=== PATIENT | female | born 1985 | race American Indian/Alaskan Native ===

== ENCOUNTER 2017-10-13 14:08 | Emergency (ER) | payer MEDICAID ==
--- NOTE | 2017-10-13 14:28 | EDM.PDOC ---
ED HPI GENERAL MEDICAL PROBLEM - General Chief Complaint: Behavioral/Psych Stated Complaint: TEST FOR METH P PATIENT Time Seen by Provider: 10/13/17 14:15 Source of Information: Reports: Patient, Family (), RN, RN Notes Reviewed History Limitations: Reports: Altered Mental Status - History of Present Illness INITIAL COMMENTS - FREE TEXT/NARRATIVE: Pt presented to ER by her with report that pt returned from a vacation to [place] with her mother and there 2yr old son yesterday, and today he was called at work by his [id number] because the pt was "not acting right". The spoke to the pt by phone daily while she was away and did not notice any unusual behaviors or speech. He states his wound never "do drugs" but he wonders if someone has poisoned her with meth or something. The pt is clinging to the , and displaying very odd movements and behaviors, yet she answers questions appropriately and is oriented to person, place, and date. She admits that something is happening to her that she doesn't understand, and she is afraid. Pt states she doesn't understand what is happening to her, but she knows she is at the ER to get help. Pt randomly with growl and scream, and lunge at people. She has been pointing and waving her hands and arms around in what the describes as "dance like" movements. Pt denies headache, visual changes, neck pain or stiffness, fever, chills, new or recent medication changes, supplements, or over the counter medications, head injury, joint aches or swelling, alcohol or drug use. Pt was seen by Dr. 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 She had been treated with Dexedrine Spansule 15mg SR. Pt took the med. in September and did well. She got a new prescription that was a different brand , and became more anxious and agitated on the medication, so 2 weeks ago she discontinued the Dexedrine and has felt well until today. Onset: Unknown/Unsure (last night or today) Duration: Constant Location: Reports: Generalized Severity: Severe Improves with: Reports: None Worsens with: Reports: None Associated Symptoms: Reports: No Other Symptoms - Related Data Allergies Allergy/AdvReac Type Severity Reaction Status Date / Time No Known Allergies Allergy Verified 10/13/17 14:37 Home Meds: Home Meds . [No Known Home Meds] 10/13/17 [History] Past Medical History Neurological History: Reports: Other (See Below) (Primary narcolepsy without cataplexy) Social & Family History - Family History Family Medical History: Noncontributory - Alcohol Use Alcohol Use History: No - Recreational Drug Use Recreational Drug Use: No Drug Use in Last 12 Months: No - Living Situation & Occupation Living situation: Reports: , with Spouse, with Family ED ROS GENERAL - Review of Systems Review Of Systems: ROS reveals no pertinent complaints other than HPI. - Physical Exam Exam: See Below Exam Limited By: Altered Mental Status General Appearance: Alert, WD/WN, No Apparent Distress, Other (non-toxic appearing) Eye Exam: Bilateral Eye: EOMI, Normal Inspection, PERRL Ears: Normal External Exam, Normal Canal, Hearing Grossly Normal, Normal TMs Nose: Normal Inspection, Normal Mucosa, No Blood Throat/Mouth: Normal Inspection, Normal Lips, Normal Teeth, Normal Gums, Normal Oropharynx, Normal Voice, No Airway Compromise Head Exam: Atraumatic, Normocephalic Neck: Normal Inspection, Supple, Non-Tender, Full Range of Motion Respiratory/Chest: No Respiratory Distress, Lungs Clear, Normal Breath Sounds, No Accessory Muscle Use, Chest Non-Tender Cardiovascular: Normal Peripheral Pulses, Regular Rate, Rhythm, No Edema, No Gallop, No JVD, No Murmur, No Rub GI/Abdominal: Normal Bowel Sounds, Soft, Non-Tender, No Organomegaly, No Distention, No Abnormal Bruit, No Mass (Female) Exam: Deferred Rectal (Female) Exam: Deferred Neuro Exam (Abbreviated): Alert, Oriented, No Motor/Sensory Deficits, Confused, Other (recurrent episodes of crying, growling, clings to , and assumes a position, she has choreographic like arm movements, and finger gesturing , and confusion as to what is happening around her, altered perception of reality) Back Exam: Normal Inspection, Full Range of Motion, NT Extremities: Normal Inspection, Normal Range of Motion, Non-Tender, No Pedal Edema, Normal Capillary Refill Skin Exam: Warm, Dry, Intact, Normal Color, No Rash Course - Vital Signs Last Recorded V/S: Last Vital Signs Temp 37.3 C 10/13/17 14:15 Pulse 106 H 10/13/17 14:15 Resp 18 10/13/17 14:15 BP 126/79 10/13/17 14:15 Pulse Ox 98 10/13/17 14:15 - Orders/Labs/Meds Labs: Laboratory Tests 10/13/17 10/13/17 10/13/17 Range/Units 14:38 14:38 14:38 WBC 5.6 (5.0-10.0) 10^3/uL RBC 4.38 (4.2-5.4) 10^6/uL Hgb 13.4 (12.0-16.0) g/dL Hct 40.2 (37.0-47.0) % MCV 91.8 (80-100) fL MCH 30.6 (27.0-34.0) pg MCHC 33.3 (33.0-35.0) g/dL Plt Count 202 (150-450) 10^3/uL Neut % (Auto) 62.9 (42.2-75.2) % Lymph % (Auto) 23.8 (20.5-50.1) % [place] % (Auto) 11.0 H (2-8) % Eos % (Auto) 2.1 (1.0-3.0) % Baso % (Auto) 0.2 (0.0-1.0) % Sodium 139 (135-145) mmol/L Potassium 3.2 L (3.6-5.0) mmol/L Chloride 103 (101-111) mmol/L Carbon Dioxide 27.0 (21.0-31.0) mmol/L Anion Gap 12.2 BUN 7 (7-18) mg/dL Creatinine 0.7 (0.6-1.3) mg/dL Est Cr Clr Drug Dosing 119.46 mL/min Estimated GFR (MDRD) > 60 BUN/Creatinine Ratio 10.00 Glucose 105 (74-105) mg/dL Calcium 9.3 (8.4-10.2) mg/dl Magnesium 1.9 (1.8-2.5) mg/dL Total Bilirubin 1.1 H (0.2-1.0) mg/dL AST 29 (10-42) IU/L ALT 19 (10-60) IU/L Alkaline Phosphatase 40 L (42-121) IU/L Creatine Kinase 351 H (26-174) IU/L C-Reactive Protein < 0.5 (0.0-1.3) mg/dL Total Protein 7.3 (6.7-8.2) g/dl Albumin 4.4 (3.2-5.5) g/dl Globulin 2.9 Albumin/Globulin Ratio 1.52 TSH, Ultra Sensitive 0.70 (0.45-5.33) uIu/mL Urine Color (YELLOW) Urine Appearance (CLEAR) Urine pH (5.0-9.0) Ur Specific Union (1.005-1.030) Urine Protein (NEGATIVE) Urine Glucose (UA) (NEGATIVE) Urine Ketones (NEGATIVE) Urine Occult Blood (NEGATIVE) Urine Nitrite (NEGATIVE) Urine Bilirubin (NEGATIVE) Urine Urobilinogen (0.2-1.0) mg/dL Ur Leukocyte Esterase (NEGATIVE) Urine RBC /HPF Urine WBC (0-5/HPF) /HPF Ur Epithelial Cells /HPF Amorphous Sediment (0/HPF) /HPF Urine Bacteria (0-FEW/HPF) /HPF Urine Mucus /LPF Urine HCG, Qual Urine Opiates Screen (NEGATIVE) Ur Oxycodone Screen (NEGATIVE) Urine Methadone Screen (NEGATIVE) Ur Barbiturates Screen (NEGATIVE) U Tricyclic Antidepress (NEGATIVE) Ur Phencyclidine Scrn (NEGATIVE) Ur Amphetamine Screen (NEGATIVE) U Methamphetamines Scrn (NEGATIVE) Urine MDMA Screen (NEGATIVE) U Benzodiazepines Scrn (NEGATIVE) Urine Cocaine Screen (NEGATIVE) U Marijuana (THC) Screen (NEGATIVE) Ethyl Alcohol < 5 mg/dL 10/13/17 10/13/17 10/13/17 Range/Units 15:01 15:01 15:01 WBC (5.0-10.0) 10^3/uL RBC (4.2-5.4) 10^6/uL Hgb (12.0-16.0) g/dL Hct (37.0-47.0) % MCV (80-100) fL MCH (27.0-34.0) pg MCHC (33.0-35.0) g/dL Plt Count (150-450) 10^3/uL Neut % (Auto) (42.2-75.2) % Lymph % (Auto) (20.5-50.1) % [place] % (Auto) (2-8) % Eos % (Auto) (1.0-3.0) % Baso % (Auto) (0.0-1.0) % Sodium (135-145) mmol/L Potassium (3.6-5.0) mmol/L Chloride (101-111) mmol/L Carbon Dioxide (21.0-31.0) mmol/L Anion Gap BUN (7-18) mg/dL Creatinine (0.6-1.3) mg/dL Est Cr Clr Drug Dosing mL/min Estimated GFR (MDRD) BUN/Creatinine Ratio Glucose (74-105) mg/dL Calcium (8.4-10.2) mg/dl Magnesium (1.8-2.5) mg/dL Total Bilirubin (0.2-1.0) mg/dL AST (10-42) IU/L ALT (10-60) IU/L Alkaline Phosphatase (42-121) IU/L Creatine Kinase (26-174) IU/L C-Reactive Protein (0.0-1.3) mg/dL Total Protein (6.7-8.2) g/dl Albumin (3.2-5.5) g/dl Globulin Albumin/Globulin Ratio TSH, Ultra Sensitive (0.45-5.33) uIu/mL Urine Color Yellow (YELLOW) Urine Appearance Slightly cloudy (CLEAR) Urine pH 7.0 (5.0-9.0) Ur Specific [place] 1.015 (1.005-1.030) Urine Protein Negative (NEGATIVE) Urine Glucose (UA) Negative (NEGATIVE) Urine Ketones 15 H (NEGATIVE) Urine Occult Blood Negative (NEGATIVE) Urine Nitrite Negative (NEGATIVE) Urine Bilirubin Small H (NEGATIVE) Urine Urobilinogen 1.0 (0.2-1.0) mg/dL Ur Leukocyte Esterase Negative (NEGATIVE) Urine RBC 0-5 /HPF Urine WBC 0-5 (0-5/HPF) /HPF Ur Epithelial Cells Few /HPF Amorphous Sediment Moderate H (0/HPF) /HPF Urine Bacteria Rare (0-FEW/HPF) /HPF Urine Mucus Rare /LPF Urine HCG, Qual Negative Urine Opiates Screen Negative (NEGATIVE) Ur Oxycodone Screen Negative (NEGATIVE) Urine Methadone Screen Negative (NEGATIVE) Ur Barbiturates Screen Negative (NEGATIVE) U Tricyclic Antidepress Negative (NEGATIVE) Ur Phencyclidine Scrn Negative (NEGATIVE) Ur Amphetamine Screen Negative (NEGATIVE) U Methamphetamines Scrn Negative (NEGATIVE) Urine MDMA Screen Negative (NEGATIVE) U Benzodiazepines Scrn Negative (NEGATIVE) Urine Cocaine Screen Negative (NEGATIVE) U Marijuana (THC) Screen Negative (NEGATIVE) Ethyl Alcohol mg/dL Meds: Medications Discontinued Medications Generic Name Dose Route Start Last Admin Trade Name Nahunq PRN Reason Stop Dose Admin Lorazepam 2 mg 10/13/17 16:18 10/13/17 16:35 Ativan PO 10/13/17 16:19 2 mg ONETIME ONE Administration - Re-Assessments/Exams Free Text/Narrative Re-Assessment/Exam: 10/13/17 16:[address] Black from inpatient psychiatric unit at [facility]. She advises to have the pt sent to [facility] ER for further neuro. evaluation, then admission to the approp. location, medical vs psych. Currently in the ER there is a crisis situatin a major trauma code, and high volumes with low staff and limited resources. I feel it is safest for the pt and for the safety of staff and the other pts to tx the pt with Ativan 2mg for her agitation and facilitate transfer for further neuro. work up at [facility]. Departure - Departure Time of Disposition: 16:35 Disposition: DC/Tfer to Acute Hospital 02 Condition: Serious Clinical Impression: Altered mental status Qualifiers: Altered mental status type: unspecified Qualified Code(s): R41.82 - Altered mental status, unspecified - Discharge Information Forms: ED Department Discharge, Interfacility Transfer FOREIGN
[2017-10-13 15:05] LABS: ANION GAP 12.2; CHLORIDE,CL 103 mmol/L (101-111); SODIUM,NA 139 mmol/L (135-145)
[2017-10-13] MEDS ORDERED: LORazepam 1 MG Tab PO ONE (16:18)
== END 2017-10-13 17:00 ==
LOC: DL.ED 14:08
DX: R41.82 Altered mental status, unspecified (principal)
CPT/HCPCS: 36415; 80053; 80305; 81001; 81025; 82550; 83735; 84443; 85025; 86140; 99284; 99285; A9270; G0480